=== PATIENT | male | born 1975 | race African-American/Black ===

== ENCOUNTER 2017-06-16 13:54 | Emergency (ER) | payer OTHER ==
[~2017-06-16] VITALS: Ht 190.5 cm; Wt 124.7 kg
--- NOTE | ~2017-06-16 | EKG ---
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 : 1975 Requested By: Dana Salazar Order Number: [id number] MD: Jair Begum Measurements Intervals [place] Rate: 82 P: 56 SD: 163 QRS: 37 QRSD: 75 T: 51 QT: 352 QTc: 411 Interpretive Statements Sinus rhythm Probable left atrial enlargement ST elev, probable normal early repol pattern Compared to ECG 12/24/2015 14:05:05 Sinus tachycardia no longer present Electronically Signed On 06-17-2017 17:04:53 CDT by Jair Begum [email or web address] <ELECTRONICALLY SIGNED> By: Jair Begum MD, [facility] 06/17/17 1704 1536 1536 Jair Begum MD, [facility] /EPI
[~2017-06-16 13:54] MED LIST: AMOX TR-K CLV1 EAC4 PO; IBUPROFEN 200200 M1 PO; METOPROLOL SUCC25 M1 PO; PRILOSEC 20 MG20 MG PO; TOPROL XL50 MG PO
[2017-06-16 15:02] LABS: URINE BLOOD NEGATIVE (Negative); URINE COLOR YELLOW; URINE GLUCOSE-RANDOM* NEGATIVE (Negative); URINE KETONES TRACE (Negative); URINE LEUKOCYTES-REFLEX TRACE (Negative); URINE PROTEIN (DIPSTICK) TRACE (Negative); URINE SPECIFIC GRAVITY 1.025 (1.003-1.035)
[2017-06-16 15:03] LABS: ICTOTEST (BILI CONFIRMATORY) Negative (Negative); URINE BILIRUBIN NEGATIVE (Negative)
[2017-06-16] MEDS ORDERED: LOPRESSOR50 PO (15:38)
[2017-06-16 16:09] LABS: ABSOLUTE NEUTROPHILS 4.7 thou/uL (1.4-8.2); BASOPHILS 0.6 % (0.0-2.0); EOSINOPHILS 0.4 % (0.0-3.0); HEMATOCRIT 49.4 % (42.0-52.0); HEMOGLOBIN 16.6 gm/dL (14.0-18.0); LYMPHOCYTES 24.1 % (24.0-44.0); MCH 28.8 pg (26.0-34.0); MCHC 33.6 g/dL (28.0-37.0); MCV 85.7 fL (80.0-100.0); MONOCYTES 5.1 % (1.0-8.0); PLATELET COUNT 140 thou/uL (150-400); POLYS 69.8 % (36.0-66.0); RBC 5.77 mil/uL (4.50-6.00); RDW 14.1 % (10.5-14.5); WBC 6.7 thou/uL (4.0-11.0)
[2017-06-16 16:17] LABS: CALCIUM 9.5 mg/dL (8.5-10.1); POTASSIUM 4.1 mmol/L (3.5-5.1)
[2017-06-16 16:23] LABS: ALBUMIN 3.9 g/dL (3.4-5.0); TOTAL BILIRUBIN 0.5 mg/dL (<0.1-1.0); TOTAL PROTEIN 7.8 g/dL (6.4-8.2)
[2017-06-16 16:25] LABS: MANUAL DIFF NO
[2017-06-16] MEDS ORDERED: BENTYL 20 MG TA20 M1 PO (18:12)
[2017-06-16] MEDS ORDERED: PHENERGAN 25 MG25 M1 PO (18:12)
[2017-06-16] MEDS ORDERED: HYDROCODONE-AP1 EAC6 PO (18:12)
== END 2017-06-16 18:14 | disposition home or self-care (01) ==
LOC: ER 13:54
PROVIDERS: Physician Assistant
DX: K80.50 Calculus of bile duct without cholangitis or cholecystitis without obstruction (principal); I10 Essential (primary) hypertension; K21.9 Gastro-esophageal reflux disease without esophagitis; F17.210 Nicotine dependence, cigarettes, uncomplicated; F10.99 Alcohol use, unspecified with unspecified alcohol-induced disorder

== ENCOUNTER 2017-12-13 17:51 | Emergency (ER) | payer OTHER ==
[~2017-12-13] VITALS: Ht 190.5 cm; Wt 117.9 kg
--- NOTE | ~2017-12-13 | EKG ---
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 : 1975 Requested By: Mark Crisostomo Order Number: [id number] MD: Juan David Osborne Measurements Intervals [place] Rate: 94 P: 73 AR: 155 QRS: 65 QRSD: 82 T: 55 QT: 364 QTc: 456 Interpretive Statements Sinus rhythm Biatrial enlargement Probable left ventricular hypertrophy ST elev, probable normal early repol pattern Compared to ECG 06/16/2017 15:36:50 No significant changes Electronically Signed On 12-13-2017 22:27:18 [employer] by Juan David Osborne [email or web address] <ELECTRONICALLY SIGNED> By: Juan David Osborne MD 12/13/172226 55 55 Juan David Osborne MD /ZECHARIAH
[~2017-12-13 17:51] MED LIST changes: +BENTYL 20 MG TA20 M1 PO; +HYDROCODONE-AP1 EAC6 PO; +LOPRESSOR50 PO; +PHENERGAN 25 MG25 M1 PO
[2017-12-13 19:36] LABS: ABSOLUTE NEUTROPHILS 6.3 thou/uL (1.4-8.2); BASOPHILS 0.8 % (0.0-2.0); EOSINOPHILS 0.3 % (0.0-3.0); HEMATOCRIT 48.3 % (42.0-52.0); HEMOGLOBIN 16.3 gm/dL (14.0-18.0); LYMPHOCYTES 22.4 % (24.0-44.0); MCH 29.1 pg (26.0-34.0); MCHC 33.8 g/dL (28.0-37.0); MONOCYTES 6.5 % (1.0-8.0); PLATELET COUNT 149 thou/uL (150-400); RBC 5.62 mil/uL (4.50-6.00); RDW 14.6 % (10.5-14.5)
[2017-12-13 19:43] LABS: ANION GAP 11 mmol/L (7-16); BUN 12 mg/dL (7-18); CALCIUM 9.4 mg/dL (8.5-10.1); CHLORIDE 101 mmol/L (98-107); CO2 25 mmol/L (21-32); GLUCOSE 78 mg/dL (74-106); SODIUM 137 mmol/L (136-145)
[2017-12-13 19:51] LABS: ALBUMIN 3.9 g/dL (3.4-5.0); MAGNESIUM 1.9 mg/dL (1.8-2.4); SGOT 28 U/L (15-37); SGPT 40 U/L (30-65); TOTAL BILIRUBIN 0.7 mg/dL (<0.1-1.0); TOTAL PROTEIN 7.7 g/dL (6.4-8.2); TROPONIN-I < 0.04 ng/mL (<0.06)
[2017-12-13] MEDS ORDERED: METOPROLOL SUCC50 MG PO (20:07)
[2017-12-13 20:31] VITALS: BP 140/86
== END 2017-12-13 20:32 | disposition home or self-care (01) ==
LOC: ER 17:51
PROVIDERS: Emergency Medicine
DX: R00.2 Palpitations (principal); I10 Essential (primary) hypertension; J06.9 Acute upper respiratory infection, unspecified; F17.210 Nicotine dependence, cigarettes, uncomplicated; Z91.14 Patient's other noncompliance with medication regimen

== ENCOUNTER → 2018-02-01 | Outpatient (CLI) | payer OTHER ==
[~2018-02-01] MED LIST changes: +FLEXERIL PO; +METOPROLOL SUCC50 MG PO; +NAPROSYN500 MG PO; +NORCO 7.5-3251 EACH PO; +SENNA-DOCUSATE1 EACH PO
--- NOTE | ~2018-02-01 | 2DMMODE ---
[facility] [address] [place] [address] 2 D/M-MODE ECHOCARDIOGRAM Name: JOSE M FINK Room #: [facility]#: [id number] Admission: 02/01/18 Attend Phys: Darby Farfan DNP Discharge: Date of : 73 Date of Service: 02/01/18 1653 Report #: [id number] THIS REPORT FOR: //name// APPROVED REPORT Study performed: 02/01/2018 14:58:12 EXAM: Comprehensive 2D, Doppler, and color-flow Echocardiogram Patient Location: Out-Patient Status: on-call BSA: 2.43 HR: 102 bpm BP: 160/95 mmHg Rhythm: Tachycardia Other Information Study Quality: Adequate Indications Murmur, HTN 2D Dimensions RVDd: 31.82 mm LVEF(%): 69.68 (>50%) IVSd: 13.17 (7-11mm) LVOT Diam: 22.04 (18-24mm) LVDd: 46.76 mm PWd: 13.08 (7-11mm) Ascending Ao: 31.87 (22-36mm) LVDs: 28.42 (25-40mm) Aortic Root: 32.12 mm Rizo's LVEF: 69.68 % Volumes Left Atrial Volume (Systole) Single Plane 4CH: 25.98 mL Single Plane 2CH: 37.70 mL LA ESV Index: 15.00 mL/m2 Aortic Valve AoV Peak Nikhil.: 1.66 m/s AO Peak Gr.: 10.99 mmHg LVOT Max P.68 mmHg LVOT Max V: 1.29 m/s GILDA Vmax: 2.98 cm2 Mitral Valve E/A Ratio: 0.9 MV Decel. Time: 154.93 ms [facility] [address] [place] [address] 2 D/M-MODE ECHOCARDIOGRAM Name: JOSE M FINK Room #: [facility]#: [id number] Admission: 02/01/18 Attend Phys: Darby Farfan DNP Discharge: Date of : 73 Date of Service: 02/01/18 1653 Report #: [id number] MV E Max Nikhil.: 0.78 m/s MV A Nikhil.: 0.86 m/s MV PHT: 44.93 ms IVRT: 62.28 ms Pulmonary Valve PV Peak Nikhil.: 1.48 m/s PV Peak Gr.: 8.77 mmHg Pulmonary Vein P Vein S: 0.93 m/s P Vein D: 0.52 m/s P Vein S/D Ratio: 1.79 Tricuspid Valve RAP Estimate: 5.00 mmHg Left Ventricle The left ventricle is normal size. There is normal LV segmental wall motion. Mild to moderate concentric left ventricular hypertrophy. Left ventricular systolic function is hyperdynamic. Very mild LV gradient noted at rest. With valsalva, peak gradient increased to 60mmHg. LVEF is 70%. Mild diastolic dysfunction is present (impaired relaxation pattern). Right Ventricle The right ventricle is normal size. The right ventricular systolic function is normal. Atria The left atrium size is normal. The right atrium size is normal. Aortic Valve Aortic valve is mildly calcified. No aortic regurgitation is present. There is no aortic valvular stenosis. Mitral Valve The mitral valve is normal in structure. There is no mitral valve regurgitation noted. No evidence of mitral valve stenosis. Tricuspid Valve The tricuspid valve is normal in structure. There is no tricuspid valve regurgitation noted. Unable to assess PA pressure. Pulmonic Valve The pulmonary valve is normal in structure. Trace pulmonic [address] [address] 2 D/M-MODE ECHOCARDIOGRAM Name: ALEKSASHISHOSKAR Childs Room #: [facility]#: [id number] Admission: 02/01/18 Attend Phys: Darby Farfan DNP Discharge: Date of : 73 Date of Service: 02/01/18 1653 Report #: [id number] regurgitation. Great Vessels The aortic root is normal in size. The ascending aorta is normal in size. IVC is normal in size and collapses >50% with inspiration. Pericardium There is no pericardial effusion. <Conclusion> Left ventricular systolic function is hyperdynamic Very mild LV gradient noted at rest. With valsalva, peak gradient 60mmHg. There is normal LV segmental wall motion. Mild-moderate LVH LVEF 70%. Mild diastolic dysfunction Aortic valve is mildly calcified. No aortic valvular stenosis or insufficiency. The mitral valve is normal in structure. No mitral valve regurgitation Pulmonary artery pressure could not be reliably ascertained There is no pericardial effusion. <ELECTRONICALLY SIGNED> By: Jair Begum MD, FACC 02/01/18 165 52 52 Jair Begum MD, FACC /INF
== END ==
LOC: CV 12-28 13:25
DX: I51.7 Cardiomegaly (principal); R01.1 Cardiac murmur, unspecified; I10 Essential (primary) hypertension

== ENCOUNTER 2018-08-31 20:43 | Emergency (ER) | payer OTHER ==
[~2018-08-31] VITALS: Ht 190.5 cm; Wt 115.7 kg
[~2018-08-31 20:43] MED LIST changes: -FLEXERIL PO; -NAPROSYN500 MG PO; -NORCO 7.5-3251 EACH PO; -SENNA-DOCUSATE1 EACH PO
[2018-08-31] MEDS ORDERED: SENNA-DOCUSATE1 EACH PO (22:02)
[2018-08-31] MEDS ORDERED: NORCO 7.5-3251 EACH PO (22:02)
[2018-08-31] MEDS ORDERED: NAPROSYN500 MG PO (22:02)
[2018-08-31] MEDS ORDERED: FLEXERIL PO (22:02)
== END 2018-08-31 22:46 | disposition home or self-care (01) ==
LOC: ER 20:43
DX: S39.012A Strain of muscle, fascia and tendon of lower back, initial encounter (principal); F17.210 Nicotine dependence, cigarettes, uncomplicated; K21.9 Gastro-esophageal reflux disease without esophagitis; I10 Essential (primary) hypertension; X50.1XXA Overexertion from prolonged static or awkward postures, initial encounter; Y92.89 Other specified places as the place of occurrence of the external cause; Y93.89 Activity, other specified; Y99.8 Other external cause status

== ENCOUNTER → 2020-07-18 | Outpatient (CLI) | payer OTHER ==
[~2020-07-18] MED LIST changes: +FLEXERIL PO; +NAPROSYN500 MG PO; +NORCO 7.5-3251 EACH PO; +SENNA-DOCUSATE1 EACH PO
== END ==
LOC: LAB 07-12 12:49
PROVIDERS: ATTEND Nurse Practitioner
DX: Z20.828 Contact with and (suspected) exposure to other viral communicable diseases (principal)

== ENCOUNTER 2020-10-31 01:37 | Emergency (ER) | payer OTHER ==
[~2020-10-31] VITALS: Ht 190.5 cm; Wt 115.7 kg
[2020-10-31 02:37] LABS: EOSINOPHILS 0.5 % (0.0-3.0); HEMATOCRIT 47.8 % (42.0-52.0); HEMOGLOBIN 15.8 gm/dL (14.0-18.0); LYMPHOCYTES 26.4 % (24.0-44.0); MCH 29.1 pg (26.0-34.0); MCHC 33.1 g/dL (28.0-37.0); MCV 87.9 fL (80.0-100.0); MONOCYTES 8.8 % (1.0-8.0); PLATELET COUNT 121 thou/uL (150-400); POLYS 63.3 % (36.0-66.0); RBC 5.44 mil/uL (4.50-6.00); RDW 13.8 % (10.5-14.5); WBC 7.9 thou/uL (4.0-11.0)
[2020-10-31 02:43] LABS: ANION GAP 12 mmol/L (7-16); BUN 9 mg/dL (7-18); CHLORIDE 97 mmol/L (98-107); CO2 26 mmol/L (21-32); GLUCOSE 94 mg/dL (74-106); POTASSIUM 4.7 mmol/L (3.5-5.1); SODIUM 135 mmol/L (136-145)
[2020-10-31 02:51] LABS: TROPONIN-I <0.06 ng/mL (<0.06)
[2020-10-31 03:47] VITALS: BP 137/93
--- NOTE | 2020-10-31 07:23 | EKG ---
[facility] [place] [address] ELECTROCARDIOGRAM REPORT Name: JOSE M FINK Amadeo [id number] Admission: 10/31/20 Attend Phys: Discharge: 10/31/20 Date of : 73 Report #: [id number] THIS REPORT FOR: cc: Darby Farfan DNP, Mary E. 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 Practice: [facility] : 1975 Requested By: Rosalio Clement Order Number: [id number] MD: Michael Keane Measurements Intervals [place] Rate: 85 P: 68 [place]: 173 QRS: 44 QRSD: 92 T: 62 QT: 366 QTc: 436 Interpretive Statements Sinus rhythm LAE, consider biatrial enlargement Compared to ECG 12/13/2017 18:56:22 No significant changes Electronically Signed On 10-31-2020 7:23:18 [employer] by Michael Keane [email or web address] <ELECTRONICALLY SIGNED> By: Michael Keane MD, FACC 10/31/20 0723 0156 0156 Michael Keane MD, [facility] /EPI
== END 2020-10-31 03:51 | disposition home or self-care (01) ==
LOC: ER 01:37
PROVIDERS: Emergency Medicine
DX: R07.89 Other chest pain (principal); I48.91 Unspecified atrial fibrillation; I10 Essential (primary) hypertension; K21.9 Gastro-esophageal reflux disease without esophagitis; F17.210 Nicotine dependence, cigarettes, uncomplicated; Z79.899 Other long term (current) drug therapy